=== PATIENT | male | born 1985 | race Caucasian/White ===

== ENCOUNTER 2022-04-16 17:32 | Outpatient (REF) | payer OTHER, SELFPAY ==
[2022-04-16 21:06] LABS: Anion Gap 6.2 mmol/L (3-11); BUN 15 mg/dL (7-18); CO2 29.8 mmol/L (21.0-32.0); CREATININE 0.8 mg/dL (0.70-1.30); Chloride 102 mmol/L (98-107); Estimated GFR 115.45 (mL/min/1.73m2); Glucose 79 mg/dL (74-106); Potassium 4.3 mmol/L (3.5-5.1); Sodium 138 mmol/L (136-145)
== END 2022-04-16 17:33 | disposition home or self-care (01) ==
LOC: NCHCN 17:32
PROVIDERS: Visit Provider Registered Nurse
DX: I10 Essential (primary) hypertension (principal)
CPT/HCPCS: 80048

== ENCOUNTER 2022-06-11 15:14 | Outpatient (REF) | payer OTHER, SELFPAY ==
[2022-06-11 15:06] LABS: Anion Gap 8.8 mmol/L (3-11); BUN 18 mg/dL (7-18); CO2 29.2 mmol/L (21.0-32.0); Calcium 8.9 mg/dL (8.5-10.1); Chloride 106 mmol/L (98-107); Estimated GFR 98.18 (mL/min/1.73m2); Glucose 89 mg/dL (74-106); Potassium 3.8 mmol/L (3.5-5.1); Sodium 144 mmol/L (136-145)
== END 2022-06-11 15:15 | disposition home or self-care (01) ==
LOC: NCHCN 15:14
PROVIDERS: Visit Provider Registered Nurse
DX: I10 Essential (primary) hypertension (principal)
CPT/HCPCS: 80048

== ENCOUNTER 2023-07-22 20:45 | Outpatient (REF) | payer OTHER, SELFPAY ==
[2023-07-22 21:30] LABS: HCT 39.1 % (40.0-50.0); HGB 12.8 g/dL (13.5-17.5); MCH 23.2 pg (27.0-33.0); MCHC 32.7 % (32.0-36.0); MPV 10.7 fL (8.0-11.0); Platelet Count 235 10^3/uL (130-400); RBC 5.52 10^6/uL (4.36-5.78); RDW 15.8 % (11.8-14.1); RDW-SD 39.8 fL; WBC 10.99 10^3/uL (4.4-10.8)
[2023-07-22 21:38] LABS: ALT 36 U/L (16-63); AST 28 U/L (15-37); Albumin 4.6 g/dL (3.4-5.0); Alkaline Phosphatase 69 U/L (46-116); Anion Gap 10.1 mmol/L (3-11); BUN 25 mg/dL (7-18); Bilirubin, Total 1.4 mg/dL (0.2-1.0); CO2 27.9 mmol/L (21.0-32.0); Calcium 9.3 mg/dL (8.5-10.1); Calculated LDL 71 mg/dL (<100); Chloride 104 mmol/L (98-107); Cholesterol 145 mg/dL (<200); Estimated GFR 97.58 (mL/min/1.73m2); Glucose 89 mg/dL (74-106); HDL Cholesterol 56 mg/dL (40-60); Potassium 4.1 mmol/L (3.5-5.1); Sodium 142 mmol/L (136-145); Total Protein 7.9 g/dL (6.4-8.2); Triglyceride 90 mg/dL (<150)
[2023-07-22 21:56] LABS: MCV 71 fL (80-95)
== END 2023-07-22 20:46 | disposition home or self-care (01) ==
LOC: NCHCN 20:45
PROVIDERS: PCP Nurse Practitioner Family; Visit Provider Nurse Practitioner Family
DX: I10 Essential (primary) hypertension (principal)
CPT/HCPCS: 80053; 80061; 85027

== ENCOUNTER 2023-10-29 09:54 | Outpatient (REF) | payer OTHER, SELFPAY ==
[2023-10-29 14:52] LABS: HCT 39.6 % (40.0-50.0); HGB 12.9 g/dL (13.5-17.5); MCHC 32.6 % (32.0-36.0); MPV 10.8 fL (8.0-11.0); Platelet Count 219 10^3/uL (130-400); RBC 5.62 10^6/uL (4.36-5.78); WBC 6.84 10^3/uL (4.4-10.8)
[2023-10-29 15:23] LABS: Ferritin 243 ng/mL (26-388)
[2023-10-29 15:27] LABS: MCV 71 fL (80-95); RDW 17.3 % (11.8-14.1)
== END 2023-10-29 09:55 | disposition home or self-care (01) ==
LOC: NCHCN 09:54
PROVIDERS: PCP Nurse Practitioner Family; Visit Provider Nurse Practitioner Family
DX: D56.1 Beta thalassemia (principal)
CPT/HCPCS: 85027; 82728

== ENCOUNTER 2024-01-20 21:49 | Outpatient (REF) | payer OTHER, SELFPAY ==
[2024-01-21 18:26] LABS: HBs Antibody, Quant >1000.0 mIU/mL (See Note); Hepatitis B Surface Ab Positive (See Note)
[2024-01-21 19:05] LABS: HIV-1/2 Ag & Ab Screen Negative (Negative)
[2024-01-21 19:17] LABS: Hepatitis C Ab w Rflx HCV PCR Negative (Negative)
[2024-01-22 12:13] LABS: Chlamydia Result Negative (Negative); GC Result Negative (Negative)
[2024-01-22 12:14] LABS: Syphilis Serology (RPR) Negative (Negative)
== END 2024-01-20 21:50 | disposition home or self-care (01) ==
LOC: NCHCN 21:49
PROVIDERS: PCP Nurse Practitioner Family; Visit Provider Nurse Practitioner Family
DX: Z11.3 Encounter for screening for infections with a predominantly sexual mode of transmission (principal); Z11.4 Encounter for screening for human immunodeficiency virus [HIV]; Z11.59 Encounter for screening for other viral diseases
CPT/HCPCS: 86706; 86803; 87389; 87491; 87591; 86592

== ENCOUNTER 2024-07-05 11:37 | Outpatient (REF) | payer OTHER, SELFPAY ==
[2024-07-05 14:53] LABS: Anion Gap 8.4 mmol/L (3-11); BUN 18 mg/dL (7-18); CO2 31.6 mmol/L (21.0-32.0); CREATININE 0.8 mg/dL (0.70-1.30); Chloride 105 mmol/L (98-107); Estimated GFR 114.02 (mL/min/1.73m2); Glucose 92 mg/dL (74-106); Sodium 145 mmol/L (136-145)
[2024-07-05 22:29] LABS: HBs Antibody, Quant >1000.0 mIU/mL (See Note); Hepatitis B Surface Ab Positive (See Note)
[2024-07-05 23:12] LABS: HIV-1/2 Ag & Ab Screen Negative (Negative)
[2024-07-05 23:15] LABS: Hepatitis C Ab w Rflx HCV PCR Negative (Negative)
[2024-07-06 10:55] LABS: Syphilis Serology (RPR) Negative (Negative)
[2024-07-06 12:11] LABS: Chlamydia Result Negative (Negative); GC Result Negative (Negative)
== END 2024-07-05 11:38 | disposition home or self-care (01) ==
LOC: NCHCN 11:37
PROVIDERS: PCP Nurse Practitioner Family; Visit Provider Nurse Practitioner Family
DX: I10 Essential (primary) hypertension (principal); Z11.3 Encounter for screening for infections with a predominantly sexual mode of transmission
CPT/HCPCS: 80048; 86706; 86803; 87389; 87491; 87591; 86592

== ENCOUNTER 2025-01-04 20:41 | Outpatient (REF) | payer OTHER, SELFPAY ==
[2025-01-04 22:10] LABS: COMMENT (LAB VIEW ONLY) 61.77 mg/dL; Microalb ug/mg Crea 6.3 ug/mg Cr
== END 2025-01-04 20:42 | disposition home or self-care (01) ==
LOC: NCHCN 20:41
PROVIDERS: PCP Nurse Practitioner Family; Visit Provider Nurse Practitioner Family
DX: I10 Essential (primary) hypertension (principal)
CPT/HCPCS: 82043; 82570